=== PATIENT | female | born 1985 | race Caucasian/White ===

== ENCOUNTER 2016-11-01 10:01 | Emergency (ER) | payer MEDICAID, OTHER ==
[~2016-11-01] VITALS: Ht 162.6 cm; Wt 54.4 kg
[~2016-11-01 10:01] MED LIST: PREN1TAB14 PO
[2016-11-01 10:46] LABS: BILIRUBIN,URINE NEGATIVE (NEGATIVE); KETONES,URINE NEGATIVE (NEGATIVE); LEUKOCYTE ESTERASE ,URINE 1+ (NEGATIVE); NITRITE,URINE NEGATIVE (NEGATIVE); PH,URINE 6.5 (5-9); PROTEIN,URINE NEGATIVE (NEGATIVE); UROBILINOGEN,URINE NORMAL (NORMAL)
[2016-11-01] MEDS ORDERED: cefTRIAXone 1 GM (ROCEPHIN) VIAL ONE (11:25)
--- NOTE | 2016-11-01 11:44 | ED GU-Female ---
General Chief Complaint: -Female Stated Complaint: VAG BLEEDING/19 WKS PREG Nursing Triage Note: PT STATES HAS BEEN HAVING VAGINAL DISCHARGE FOR APPROX 6 DAYS, STATES HAS NO MVT NOTED, LMP 06/16/16, PT IS 19-20 WEEKS ACCORDING TO LMP.PT HAS NO CARE. Nursing Sepsis Screen: No Definite Risk Source: patient Exam Limitations: no limitations History of Present Illness Time seen by provider: 11:41 Initial Comments The patient is a 31-year-old white female who presents with obstetrical complaints. She states by last menstrual period she is 19-20 weeks . She has not seen a provider at this point. She reports that for the last week she has not felt movement. She has had discharge and old blood appearance vaginally. She seems to be very secretive about the whole circumstance. She is aborta 2 Timing/Duration: other Allergies and Home Medications Allergies Coded Allergies: No Known Drug Allergies (Verified Allergy, Unknown, 11/05/08) Home Medications Vits W-Ca,Fe,Fa(<1MG) 1 Each Tablet 1 EACH PO DAILY (Reported) Constitutional: see HPI EENTM: no symptoms reported Respiratory: no symptoms reported Cardiovascular: no symptoms reported Gastrointestinal: no symptoms reported Genitourinary: see HPI Musculoskeletal: no symptoms reported Skin: no symptoms reported Psychiatric/Neurological: No Symptoms Reported Endocrine: No Symptoms Reported Hematologic/Lymphatic: No Symptoms Reported Past Hcmaogj-Azjmxi-Kbqljz Hx Patient Social History Alcohol Use: Denies Use Recreational Drug Use: No Smoking Status: Never a Smoker Recent Foreign Travel: No Contact w/Someone Who Travel: No Recent Infectious Disease Expo: No Recent Hopitalizations: Yes (CHILDBIRTH 12/2008, 06/2010) Physical Abuse Screen: No Sexual Abuse: No Immunizations Up To Date Date of Influenza Vaccine: Aug 15, 2012 Surgeries HX Surgeries: Yes (LEEP) Respiratory Hx Respiratory Disorders: No Cardiovascular Hx Cardiac Disorders: No Neurological Hx Neurological Disorders: No Reproductive System : Yes (APPROX 19WEEKS) Hx Reproductive Disorders: Yes Sexually Transmitted Disease: Yes (HPV) Genitourinary Hx Genitourinary Disorders: No Gastrointestinal Hx Gastrointestinal Disorders: No Musculoskeletal Hx Musculoskeletal Disorders: No Endocrine Hx Endocrine Disorders: No HEENT HX ENT Disorders: No Psychosocial Hx Psychiatric Problems: No Blood Transfusions Hx Blood Disorders: No Physical Exam Vital Signs Vital Sign - Last 12Hours 11/01/16 10:10 Temp 98.3 Pulse 98 Resp 18 B/P 108/69 Pulse Ox 99 Capillary Refill : Less Than 3 Seconds General Appearance: mild distress HEENT: normal ENT inspection Neck: full range of motion Cardiovascular: normal peripheral pulses regular rate, rhythm no edema no gallop no JVD no murmur Respiratory: chest non-tender lungs clear normal breath sounds no respiratory distress no accessory muscle use respiratory distress Gastrointestinal: normal bowel sounds non tender soft no organomegaly no pulsatile mass abnormal bowel sounds Progress/Results/Core Measures Results/Orders Lab Results Laboratory Tests Test 11/01/16 10:35 11/01/16 10:45 Range/Units Urine Bacteria TRACE /HPF Urine Bilirubin NEGATIVE NEGATIVE Urine Casts NONE /LPF Urine Clarity CLEAR Urine Color YELLOW Urine Crystals NONE /LPF Urine Culture Indicated NO Urine Glucose (UA) NEGATIVE NEGATIVE Urine Ketones NEGATIVE NEGATIVE Urine Leukocyte Esterase 1+ H NEGATIVE Urine Mucus SMALL H /LPF Urine Nitrite NEGATIVE NEGATIVE Urine Protein NEGATIVE NEGATIVE Urine RBC 0-2 /HPF Urine RBC (Auto) 2+ H NEGATIVE Urine Specific [place] 1.015 L 1.016-1.022 Urine Squamous Epithelial Cells 2-5 /HPF Urine Urobilinogen NORMAL NORMAL MG/DL Urine WBC NONE /HPF Urine pH 6.5 5-9 Human Chorionic Gonadotropin, Quant 322 H <5 MIU/ML My Orders Orders-RODERICK SOTOMAYOR MD Hcg,Quantitative (11/01/16 10:26) Ua Culture If Indicated (11/01/16 10:26) Ceftriaxone Injection (Rocephin Injectio (11/01/16 11:25) Us Limited [id number] (11/01/16 10:26) Vital Signs/I&O Vital Sign - Last 12Hours 11/01/16 10:10 Temp 98.3 Pulse 98 Resp 18 B/P 108/69 Pulse Ox 99 Blood Pressure Mean: 82 Departure Communication Progress Notes 1150 again discussed the findings and my concerns to the patient. She allowed that she is Rh-. And therefore she will need program. She also agrees that she would see Dr. Wynne. I will try to arrange that for her. It is noted that her dates weren't 19-20 weeks, the sonographic age was 12-13 weeks, and the hCG quantitatively was consistent with 1-3 weeks. Impression Impression: Primary Impression: demise Disposition: 01 HOME, SELF-CARE Condition: Stable/Unchanged Departure-Patient Inst. Decision time for Depature: 12:16 Referrals: NO,LOCAL PHYSICIAN (PCP) Primary Care Physician Add. Discharge Instructions: All discharge instructions reviewed with patient and/or family. Voiced understanding. Appointment tomorrow at [address] Wynne's office. Return to emergency room if significant pain or severe vaginal bleeding RODERICK SOTOMAYOR MD Nov 01, 2016 11:44
--- NOTE | 2016-11-01 11:54 | Diagnostic Imaging Report ---
EXAMINATION: ultrasound. INDICATION: Bleeding There are no prior exams available for comparison. There is a single fetus present. The fetus is in breech presentation. However heart motion could not be identified. The skull is somewhat oblong. No other obvious abnormality is noted. The BPD measurements suggest a gestational age is approximately 12-13 weeks. The amniotic fluid volume is within normal limits. The placenta is posterior. IMPRESSION: demise. These results were called to Dr. Rinaldi at time of dictation. CRITICAL FINDING: Dictated by: Dictated on workstation # [id number]
[2016-11-01 12:37] VITALS: BP 108/69
[2016-11-17] MEDS ORDERED: IBUP-1773 PO (09:32)
[2016-11-17] MEDS ORDERED: HYDR-3729 PO (09:32)
== END 2016-11-01 13:06 | disposition home or self-care (01) ==
LOC: EDUNIT# 10:01 → ER 10:03
DX: O36.4XX0 Maternal care for intrauterine death, not applicable or unspecified (principal); Z3A.12 12 weeks gestation of pregnancy
CPT/HCPCS: 36415; 76815; 81000; 84702

== ENCOUNTER 2016-11-13 10:22 | Emergency (ER) | payer MEDICAID ==
[~2016-11-13] VITALS: Ht 162.6 cm; Wt 54.4 kg
--- NOTE | 2016-11-13 11:37 | ED GU-Female ---
General Chief Complaint: Fever-Adult/Adol Stated Complaint: FEVER MISCARRIAGE Nursing Triage Note: PT. HAD MISCARRIAGE WITH DNC SCHEDULED FOR WEDNESDAY. OBGYN TOLD PT. TO CHECK IN IF FEVER DEVELOPES. TEMP AT [facility] WAS 100.0.TEMP IN TRIAGE 99.7, TEMPORAL. Nursing Sepsis Screen: No Definite Risk Source: patient, spouse Exam Limitations: no limitations History of Present Illness Time seen by provider: 11:37 Initial Comments 31-year-old female patient presents to the emergency department with complaints of increased vaginal bleeding and intermittent contractions. Also reports low- grade fever beginning this a.m. Patient was seen in the emergency department at [facility] in 11/01/[address] Rinaldi and diagnosed with demise at 19 weeks (Fetus measured 12-13 weeks by ultrasound without detectable heart activity). Patient was then seen by Dr. Matthews in the office and given a Rhogam shot last Wednesday. Patient is scheduled for outpatient D&C on 11/17/[address] Matthews. Denies current cramping, pain, nausea, and vomiting. NPO since 1000 (had a couple of bites of a banana) Timing/Duration: changing over time, other (onset 10-14 days.) Severity/Quality: other (intermittent contractions beginning Wednesday.) Location: vaginal, other (lower abdomen ) Radiation: none Activities at Onset: none Prior Genitourinary Problems: similar symptoms Sexual [place] History: less than 2 months ago, single partner Modifying Factors: Worsens With Other (denies modifying factors.) Allergies and Home Medications Allergies Coded Allergies: No Known Drug Allergies (Verified Allergy, Unknown, 11/05/08) Home Medications Ondansetron 8 Mg Tab.rapdis #10 4-8 MG PO Q6H PRN PRN NAUSEA Prescribed by: KAMILLA GASCA on 11/13/16 1411 Constitutional: chillsNo dizziness, feverNo malaise Respiratory: no symptoms reported Cardiovascular: no symptoms reported Gastrointestinal: see HPI abdominal painNo constipation, No diarrhea, No nausea, No vomiting Genitourinary: see HPIdenies burning, dischargedenies dysuria, denies frequency, denies flank pain, pain (intermittent contractions.) Musculoskeletal: No back pain Skin: no symptoms reported Psychiatric/Neurological: No Symptoms Reported All Other Systemes Reviewed Negative Unless Noted: Yes (Negative excepted noted.) Past Wmxelkn-Ychacz-Pjpvsy Hx Patient Social History Alcohol Use: Denies Use Recreational Drug Use: No Smoking Status: Never a Smoker Recent Foreign Travel: No Contact w/Someone Who Travel: No Recent Infectious Disease Expo: No Recent Hopitalizations: Yes (CHILDBIRTH 12/2008, 06/2010) Physical Abuse Screen: No Sexual Abuse: No Immunizations Up To Date Date of Influenza Vaccine: Aug 15, 2012 Surgeries HX Surgeries: Yes (LEEP) Respiratory Hx Respiratory Disorders: No Cardiovascular Hx Cardiac Disorders: No Neurological Hx Neurological Disorders: No Reproductive System : Yes Hx : 7 Hx Para: 4 Hx Total # of Abortions (Spona: 2 Hx Reproductive Disorders: Yes Sexually Transmitted Disease: Yes (HPV) Genitourinary Hx Genitourinary Disorders: No Gastrointestinal Hx Gastrointestinal Disorders: No Musculoskeletal Hx Musculoskeletal Disorders: No Endocrine Hx Endocrine Disorders: No HEENT HX ENT Disorders: No Psychosocial Hx Psychiatric Problems: No Blood Transfusions Hx Blood Disorders: No Reviewed Nursing Assessment Reviewed/Agree w Nursing PMH: Yes Family Medical History Significant Family History: No Pertinent Family Hx Physical Exam Vital Signs Vital Sign - Last 12Hours 11/13/16 11/13/16 11:17 14:38 Temp 99.7 Pulse 75 Resp 18 B/P 100/61 Pulse Ox 97 O2 Delivery Room Air Capillary Refill : Less Than 3 Seconds General Appearance: WD/WN no apparent distress HEENT: PERRL/EOMI pharynx normal Neck: supple normal inspection Cardiovascular: normal peripheral pulses regular rate, rhythm no edema no murmur Respiratory: lungs clear normal breath sounds no respiratory distress Gastrointestinal: normal bowel sounds non tender softNo distended, other ( uterine fundus consistent with a 13 wk uterus.) Back: normal inspection no CVA tenderness Extremities: no pedal edema normal capillary refill Neurologic/Psychiatric: alert oriented x 3 other (flat affect) Skin: normal color warm/dry Progress/Results/Core Measures Results/Orders Lab Results My Orders Medications Given in ED Vital Signs/I&O Blood Pressure Mean: 74 Departure Communication Progress Notes Patient seen and evaluated. Patient reports receiving rhogam in the OB's office last Wednesday. Patient instructed to not eat or drink anything. states "I don't know that I trust myself not to let her drink if she wants something." I advised the patient and that if she requires surgery, eating or drinking increased her risk of aspiration, infection, and/or . Both voice understanding. 1335 patient case discussed with Dr. Morris including history, exam findings, vital signs, laboratory findings. Dr. Morris recommends discharge to home with return precautions as patient has a normal white count. Advises patient to f/u with Dr. Matthews as previously scheduled Wednesday for D&C. 1345 all laboratory findings and recommendations by Dr. Morris discussed with the patient. All return precautions were discussed with the patient as described in the discharge instructions of this report. Patient voices understanding and agrees with the treatment plan. Patient case discussed with Dr. Michele, he agrees with the plan of care. Impression Impression: Primary Impression: demise, less than 22 weeks Disposition: 01 HOME, SELF-CARE Condition: Improved Departure-Patient Inst. Decision time for Depature: 13:44 Referrals: SHAMA MORRIS MD NO,LOCAL PHYSICIAN (PCP) Primary Care Physician SANJEEV MATTHEWS DO Patient Instructions: Dealing With Miscarriage, Miscarriage (DC) Add. Discharge Instructions: All discharge instructions reviewed with patient and/or family. Voiced understanding. Tylenol Extra Strength [id number] as directed for pain. Ibuprofen 800 mg by mouth every 8 hours as needed for pain. Drink plenty of fluids. Rest. No tampons, intercourse, or douching. Follow-up with Dr. Matthews on Wednesday for D&C as previously scheduled. Be at the hospital on Wednesday by 06 :15 AM for your procedure. Contact Dr. Matthews's office Wednesday to notify them of ED visit. Return to the emergency department immediately for fever greater than 100.5F, vaginal bleeding with greater than 2 pads per hour for greater than 2 hours, vaginal discharge, inability to urinate, dizziness, shortness of air, chest pain, or any other concerns. Scripts Ondansetron (Ondansetron Odt)8 Mg Tab.rapdis4-8 Mg PO Q6H PRN NAUSEA #10 TAB Ref 0 Prov:KAMILLA GASCA 11/13/16 KAMILLA GASCA Nov 13, 2016 11:37 Lactic Acid Level 1.0 0.5-2.0 MMOL/L Lymphocytes # (Auto) 1.5 1.0-4.0 X 10^3 Lymphocytes (%) (Auto) 16 12-44 % Mean Corpuscular Hemoglobin 30 25-34 PG Mean Corpuscular Hemoglobin Concent 33 32-36 G/DL Mean Corpuscular Volume 92 80-99 FL Mean Platelet Volume 9.5 7.4-10.4 FL Monocytes # (Auto) 0.3 0.0-1.0 X 10^3 Monocytes (%) (Auto) 3 0-12 % Neutrophils # (Auto) 7.5 1.8-7.8 X 10^3 Neutrophils (%) (Auto) 81 H 42-75 % Platelet Count 233 130-400 10^3/uL Potassium Level 3.7 3.6-5.0 MMOL/L Red Blood Count 4.80 4.35-5.85 10^6/uL Red Cell Distribution Width 13.0 10.0-14.5 % Sodium Level 139 135-145 MMOL/L Total Bilirubin 0.6 0.1-1.0 MG/DL Total Protein 7.8 6.4-8.2 G/DL White Blood Count 9.3 4.3-11.0 10^3/uL Ur Tricyclic Antidepressants Screen NEGATIVE NEGATIVE Urine Amphetamines Screen NEGATIVE NEGATIVE Urine Bacteria TRACE /HPF Urine Barbiturates Screen NEGATIVE NEGATIVE Urine Benzodiazepines Screen NEGATIVE NEGATIVE Urine Bilirubin NEGATIVE NEGATIVE Urine Cannabinoids Screen NEGATIVE NEGATIVE Urine Casts NONE /LPF Urine Clarity CLEAR Urine Cocaine Screen NEGATIVE NEGATIVE Urine Color YELLOW Urine Crystals NONE /LPF Urine Culture Indicated NO Urine Glucose (UA) NEGATIVE NEGATIVE Urine Ketones 3+ H NEGATIVE Urine Leukocyte Esterase NEGATIVE NEGATIVE Urine Methadone Screen NEGATIVE NEGATIVE Urine Methamphetamines Screen NEGATIVE NEGATIVE Urine Mucus NEGATIVE /LPF Urine Nitrite NEGATIVE NEGATIVE Urine Opiates Screen NEGATIVE NEGATIVE Urine Oxycodone Screen NEGATIVE NEGATIVE Urine Phencyclidine Screen NEGATIVE NEGATIVE Urine Propoxyphene Screen NEGATIVE NEGATIVE Urine Protein NEGATIVE NEGATIVE Urine RBC 10-25 H /HPF Urine RBC (Auto) 5+ H NEGATIVE Urine Specific [place] 1.010 L 1.016-1.022 Urine Squamous Epithelial Cells 2-5 /HPF Urine Urobilinogen NORMAL NORMAL MG/DL Urine WBC NONE /HPF Urine pH 7 5-9 My Orders Orders-KAMILLA GASCA Cbc With Automated Diff (11/13/16 11:40) Comprehensive Metabolic Panel (11/13/16 11:40) Ua Culture If Indicated (11/13/16 11:40) Saline Lock/Iv-Start (11/13/16 11:40) Rhogam Administration (11/13/16 11:40) Lactic Acid Analyzer (11/13/16 11:40) Blood Culture (11/13/16 11:40) Ns Iv 1000 Ml (Sodium Chloride 0.9%) (11/13/16 11:40) Drug Screen Stat (Urine) (11/13/16 11:52) Medications Given in ED Current Medications Medications Dose Ordered Sig/Natalee Route Start Time Stop Time Status Last Admin Dose Admin Sodium Chloride 1,000 ml @ 0 mls/hr Q0M ONCE IV 11/13/16 11:40 11/13/16 11:43 DC 11/13/16 12:08 1,000 MLS/HR Vital Signs/I&O Vital Sign - Last 12Hours 11/13/16 11:17 Temp 99.7 Pulse 75 B/P 100/61 Pulse Ox 97 O2 Delivery Room Air Blood Pressure Mean: 74 Departure Communication Progress Notes Patient seen and evaluated. Patient reports receiving rhogam in the OB's office last Wednesday. Patient instructed to not eat or drink anything. states "I don't know that I trust myself not to let her drink if she wants something." I advised the patient and that if she requires surgery, eating or drinking increased her risk of aspiration, infection, and/or . Both voice understanding. 4887 patient case discussed with Dr. Morris off him. Recommends discharge to home with return precautions as patient has a normal white count. Impression Impression: Primary Impression: demise, less than 22 weeks Disposition: 01 HOME, SELF-CARE Condition: Improved Departure-Patient Inst. Decision time for Depature: 13:44 Referrals: SHAMA MORRIS MD,LOCAL PHYSICIAN (PCP) Primary Care Physician SANJEEV MATTHEWS DO Patient Instructions: Dealing With Miscarriage, Miscarriage (DC) Add. Discharge Instructions: All discharge instructions reviewed with patient and/or family. Voiced understanding. Tylenol Extra Strength [id number] as directed for pain. Ibuprofen 800 mg by mouth every 8 hours as needed for pain. Drink plenty of fluids. Rest. No tampons, intercourse, or douching. Follow-up with Dr. Matthews on Wednesday for D&C as previously scheduled. Be at the hospital on Wednesday by 06 :15 AM for your procedure. Contact Dr. Matthews's office Wednesday to notify them of ED visit. Return to the emergency department immediately for fever greater than 100.5F, vaginal bleeding with greater than 2 pads per hour for greater than 2 hours, vaginal discharge, inability to urinate, dizziness, shortness of air, chest pain, or any other concerns. KAMILLA GASCA Nov 13, 2016 11:37
[2016-11-13] MEDS ORDERED: NS IV 1000 ML 1,000 ML IV ONE (11:40)
[2016-11-13 12:11] LABS: BASOPHILS % (AUTO) 0 % (0-10); EOSINOPHILS % (AUTO) 0 % (0-10); LYMPHOCYTES # (AUTO) 1.5 X 10^3 (1.0-4.0); LYMPHOCYTES % (AUTO) 16 % (12-44); MEAN CORPUSCULAR HEMOGLOBIN 30 PG (25-34); MEAN CORPUSCULAR HGB CONC 33 G/DL (32-36); MEAN CORPUSCULAR VOLUME 92 FL (80-99); MEAN PLATELET VOLUME 9.5 FL (7.4-10.4); MONOCYTES # (AUTO) 0.3 X 10^3 (0.0-1.0); MONOCYTES % (AUTO) 3 % (0-12); NEUTROPHILS # (AUTO) 7.5 X 10^3 (1.8-7.8); NEUTROPHILS % (AUTO) 81 % (42-75); PLATELET COUNT 233 10^3/uL (130-400); WHITE BLOOD COUNT 9.3 10^3/uL (4.3-11.0)
[2016-11-13 12:32] LABS: ALANINE AMINOTRANSFERASE 12 U/L (0-55); ALBUMIN 4.6 G/DL (3.2-4.5); ANION GAP 12 MMOL/L (5-14); ASPARTATE AMINO TRANSFERASE 17 U/L (5-34); BILIRUBIN,TOTAL 0.6 MG/DL (0.1-1.0); BLOOD UREA NITROGEN 6 MG/DL (7-18); BUN/CREATININE RATIO 9; CALCIUM 9.1 MG/DL (8.5-10.1); CARBON DIOXIDE 22 MMOL/L (21-32); CHLORIDE 105 MMOL/L (98-107); CREATININE SERUM 0.67 MG/DL (0.60-1.30); GFR ESTIMATED > 60; GLUCOSE 77 MG/DL (70-105); POTASSIUM 3.7 MMOL/L (3.6-5.0); SODIUM 139 MMOL/L (135-145); TOTAL PROTEIN 7.8 G/DL (6.4-8.2)
[2016-11-13 13:10] LABS: BILIRUBIN,URINE NEGATIVE (NEGATIVE); KETONES,URINE 3+ (NEGATIVE); LEUKOCYTE ESTERASE ,URINE NEGATIVE (NEGATIVE); NITRITE,URINE NEGATIVE (NEGATIVE); PH,URINE 7 (5-9); PROTEIN,URINE NEGATIVE (NEGATIVE); UROBILINOGEN,URINE NORMAL (NORMAL)
[2016-11-13] MEDS ORDERED: ONDA8TAB13 PO (14:11)
[2016-11-13 14:38] VITALS: BP 113/75
[2016-11-17] MEDS ORDERED: HYDR-3729 PO (09:32)
[2016-11-17] MEDS ORDERED: IBUP-1773 PO (09:32)
== END 2016-11-13 14:38 | disposition home or self-care (01) ==
LOC: EDUNIT# 10:22 → ER 10:25
DX: O36.4XX0 Maternal care for intrauterine death, not applicable or unspecified (principal); Z3A.12 12 weeks gestation of pregnancy
CPT/HCPCS: 36415; 80053; 80306; 81000; 83605; 85025; 87040; 96360

== ENCOUNTER 2016-11-17 06:03 | Day surgery (SDC) | payer MEDICAID ==
[2016-11-17] VITALS (16 sets, daily range): BP systolic 100–128; BP diastolic 63–83
[~2016-11-17] VITALS: Ht 162.6 cm; Wt 54.4 kg
[~2016-11-17 06:03] MED LIST changes: +ONDA8TAB13 PO
[2016-11-17] MEDS: LACTATED RINGERS 1,000 ML IV PRN ×4 (06:40→17:57)
[2016-11-17 06:58] LABS: BASOPHILS % (AUTO) 0 % (0-10); EOSINOPHILS % (AUTO) 1 % (0-10); LYMPHOCYTES # (AUTO) 1.8 X 10^3 (1.0-4.0); LYMPHOCYTES % (AUTO) 31 % (12-44); MEAN CORPUSCULAR HEMOGLOBIN 31 PG (25-34); MEAN CORPUSCULAR HGB CONC 33 G/DL (32-36); MEAN CORPUSCULAR VOLUME 92 FL (80-99); MEAN PLATELET VOLUME 9.2 FL (7.4-10.4); MONOCYTES # (AUTO) 0.3 X 10^3 (0.0-1.0); MONOCYTES % (AUTO) 6 % (0-12); NEUTROPHILS # (AUTO) 3.5 X 10^3 (1.8-7.8); NEUTROPHILS % (AUTO) 62 % (42-75); PLATELET COUNT 175 10^3/uL (130-400); RED BLOOD COUNT 4.27 10^6/uL (4.35-5.85); RED CELL DISTRIBUTION WIDTH 12.8 % (10.0-14.5); WHITE BLOOD COUNT 5.7 10^3/uL (4.3-11.0)
[2016-11-17] MEDS ORDERED: LIDOCAINE PF 2% 10 ML (XYLOCAINE) AMP ONE ×2 (06:58→16:15)
[2016-11-17] MEDS ORDERED: fentaNYL INJECTION 100 MCG/2 ML AMP ONE ×2 (06:58→15:40)
[2016-11-17] MEDS ORDERED: ONDANSETRON 4 MG/2 ML (SDV) Z0FRAN ONE ×2 (06:58→16:15)
[2016-11-17] MEDS ORDERED: DEXAMETHASONE PF 10 MG/ML (DECADRON) VIAL ONE (06:58)
[2016-11-17] MEDS ORDERED: LACTATED RINGERS 0 ML IV ONE (06:58)
[2016-11-17] MEDS ORDERED: proPOfol 200 MG/20 ML (DIPRIVAN) VIAL IV ONE ×2 (06:58→16:15)
[2016-11-17] MEDS ORDERED: MIDAZOLAM 2 MG/2 ML (VERSED) VIAL ONE ×2 (06:58→15:39)
[2016-11-17] MEDS ORDERED: metroNIDAZOLE 500 MG/100 ML IVPB (PRE-MIX) IV ONE (07:00)
[2016-11-17] MEDS ORDERED: ceFAZolin 1 GM/NS 50 ML IVPB IV ONE ×2 (07:00)
[2016-11-17] MEDS ORDERED: CATHETER FLUSH 10 ML SYR IV PRN (07:00)
--- NOTE | 2016-11-17 07:43 | Progress Note-Pre Operative ---
Pre-Operative Progress Note H&P Reviewed The H&P was reviewed, patient examined and no changes noted. Date H&P Reviewed: Nov 17, 2016 Time H&P Reviewed: 07:30 Pre-Operative Diagnosis: missed ab at 12 weeks SANJEEV MATTHEWS DO Nov 17, 2016 07:43
[2016-11-17] MEDS ORDERED: OXYTOCIN (PITOCIN) 10 UNIT/ML VIAL ONE (08:45)
[2016-11-17] MEDS ORDERED: LACTATED RINGERS 1,000 ML IV ONE ×2 (09:11→17:55)
[2016-11-17] MEDS ORDERED: SEVOFLURANE (ULTANE) 15 ML INHAL SOLN ONE ×5 (09:12→16:59)
[2016-11-17] MEDS ORDERED: PHENYLEPHRINE 100 MCG/ML 10 ML (ANESTHESIA) SYR ONE (09:14)
[2016-11-17] MEDS ORDERED: HYDROcodone/APAP 5 MG/325 MG (LORTAB) TAB PO PRN ×2 (09:15→12:45)
[2016-11-17] MEDS ORDERED: KETOROLAC 30 MG/ML VIAL IVP ONE (09:15)
[2016-11-17] MEDS ORDERED: ONDANSETRON 4 MG/2 ML (SDV) Z0FRAN IVP PRN (09:15)
[2016-11-17] MEDS ORDERED: MISOPROSTOL 200 MCG (CYTOTEC) TABLET PO NR (09:15)
--- NOTE | 2016-11-17 09:28 | Operative Report ---
Operative Report Date of Procedure/Surgery Nov 17, 2016 Post-Operative Diagnosis missed ab at 12 weeks. Procedure Performed Name of Procedure: dilation and evacuation of 12 week demise Description of Procedure Histologic Aide ISATU Mark Histologic Aide necessary due to risk of bleeding and retained products Anesthesia Type: General Estimated blood loss (mL): 1000 ml Specimen(s) collected products of conception Indications missed AB at 12 weeks Procedure this is a 31-year-old 6 para 4 female with last menstrual period approximately 22 weeks ago. About 2 weeks ago, she went to the emergency room with complaint of abnormal vaginal discharge. She had not yet been established for care. She states she just had some discharge but no bleeding and no spotting. Ultrasound was done revealing a 12 week demise. She had had no symptoms of miscarriage and thought she was 20 weeks . She has had no fever. She came to see me the next day and we have scheduled her for D&C 14 days ago. However she wanted to see if she could do this on her own and passed the tissue. Since that time she has had episodes of bleeding. But no passage of tissue. Last week she came to the office for confirmation and still had a 12 week demise. Weekend she has had a low-grade temperature and some vomiting but no heavy bleeding and no cramping. With informed consent the patient was taken to the operating room where she was prepped and draped in the usual sterile fashion in the dorsal . A straight catheter was used to drain the bladder of clear yellow urine. a weighted speculum was now placed in the vagina and a Gilberto was used to retract the bladder. The cervix was grasped with a sharp toothed tenaculum. There was a very tiny amount of blood-tinged discharge. The cervix was closed. I utilized Hegar dilators to dilate up to 18 millimeters. Then inserted a grasper and eventually was able to tease out the tissue. It did not come out intact. But I was able to remove all the tissue and did a postoperative exam to realize that the entire fetus was removed. It was very discolored and macerated. We did this under ultrasound guidance. I then followed up with a ivette curet to remove the placenta. The placenta was very macerated with large blood clots Bactine that she was trying to miscarry. There was no abnormal discharge or smell. She did have some bleeding after removal and this resolved with IV Pitocin (20 mg) and 0.2 mg of IM Methergine. She did have a laceration on the cervix from the tenaculum and this was repaired with 3-0 Vicryl. She had minimal bleeding at the end of the procedure. I examined the tissue and it was not intact, but all removed. We did get footprints. It was a male fetus. Will be sent for gross inspection. Patient and the preferred to take the fetus for burial or cremation. The instruments were removed. Sponge, instrument, and needle counts were correct 2. Allergies and Home Medications Allergies Coded Allergies: No Known Drug Allergies (Verified , 11/05/08) Home Medications Ondansetron 8 Mg Tab.rapdis #10 4-8 MG PO Q6H PRN PRN NAUSEA Prescribed by: KAMILLA GASCA on 11/13/16 1411 SANJEEV MATTHEWS DO Nov 17, 2016 09:28
[2016-11-17] MEDS ORDERED: PROMETHAZINE INJ 25 MG/ML (PHENERGAN) AMP IV PRN (09:30)
[2016-11-17] MEDS ORDERED: ONDANSETRON 4 MG/2 ML (SDV) Z0FRAN IV PRN (09:30)
[2016-11-17] MEDS ORDERED: morphine INJ 10 MG/ML 1ML (SYR OR VIAL) IV PRN (09:30)
[2016-11-17] MEDS ORDERED: IBUP-1773 PO (09:32)
[2016-11-17] MEDS ORDERED: HYDR-3729 PO (09:32)
--- NOTE | 2016-11-17 09:34 | Discharge Inst-Women's Service ---
Discharge Inst-Women's Serv Depart Medication/Instructions New, Converted or Re-Newed RX: RX on Chart Instructions expect light bleeding for up to 2 weeks. Call for signs of infection, bleeding greater than 1 pad per hour Final Diagnosis missed at 12 weeks Consults/Follow Up Additional Follow Up: Yes (1 week with Ricci) Activity Activity: Activity as Tolerated Driving Instructions: No Driving for 24 Hours ( a) NO SMOKING: NO SMOKING Nothing Inside Vagina: No Douching, No Deltana, No Tampons Diet Discharge Diet: No Restrictions Symptoms to Report to : Bleeding Excessive, Fever Over 101 Degrees F, Vaginal Bleeding Increase, Vaginal Discharge Foul For Any Problems or Questions: Contact Your Physician Skin/Wound Care Infection Signs and Symptoms: Temperature Above 101 F SANJEEV MATTHEWS DO Nov 17, 2016 09:34
[2016-11-17] MEDS ORDERED: METHYLERGONOVINE 0.2 MG/ML (METHERGINE) AMP ONE (12:02)
[2016-11-17] MEDS ORDERED: KETOROLAC 30 MG/ML VIAL IVP PRN (12:45)
[2016-11-17] MEDS: D5 LR IV SOLUTION 1,000 ML IV SCH (13:49)
[2016-11-17] MEDS: IBUPROFEN 600 MG (MOTRIN) TAB PO SCH ×2 (13:49→20:06)
[2016-11-17] MEDS: METHYLERGONOVINE 0.2 MG (MEHTERGINE) TAB PO SCH ×3 (13:50→20:06)
[2016-11-17] MEDS: OXYTOCIN/NORMAL SALINE 500 ML IV SCH ×2 (13:52→16:05)
[2016-11-17] MEDS ORDERED: MISOPROSTOL 200 MCG (CYTOTEC) TABLET PV NR (14:00)
[2016-11-17 14:35] LABS: BASOPHILS % (AUTO) 0 % (0-10); EOSINOPHILS % (AUTO) 0 % (0-10); LYMPHOCYTES # (AUTO) 0.4 X 10^3 (1.0-4.0); LYMPHOCYTES % (AUTO) 3 % (12-44); MEAN CORPUSCULAR HEMOGLOBIN 31 PG (25-34); MEAN CORPUSCULAR HGB CONC 34 G/DL (32-36); MEAN CORPUSCULAR VOLUME 92 FL (80-99); MEAN PLATELET VOLUME 9.2 FL (7.4-10.4); MONOCYTES # (AUTO) 0.1 X 10^3 (0.0-1.0); MONOCYTES % (AUTO) 1 % (0-12); NEUTROPHILS # (AUTO) 13.8 X 10^3 (1.8-7.8); NEUTROPHILS % (AUTO) 96 % (42-75); PLATELET COUNT 195 10^3/uL (130-400); RED CELL DISTRIBUTION WIDTH 12.5 % (10.0-14.5); WHITE BLOOD COUNT 14.3 10^3/uL (4.3-11.0)
[2016-11-17 14:56] LABS: BAND NEUTROPHILS 0 %; NEUTROPHILS % (MANUAL) 98 %
[2016-11-17 14:57] LABS: BASOPHILS % (MANUAL) 0 %; EOSINOPHILS % (MANUAL) 0 %; LYMPHOCYTES % (MANUAL) 2 %
[2016-11-17] MEDS ORDERED: CARBOPROST (HEMABATE) 250 MCG/ML AMP IM ONE ×2 (15:00→17:00)
[2016-11-17] MEDS: ceFAZolin INJECTION 1,000 MG in NORMAL SALINE (BAXTER MINI) 50 ML IV SCH ×2 (15:03→23:11)
[2016-11-17] MEDS ORDERED: LACTATED RINGERS 3,000 ML IV ONE (16:15)
[2016-11-17] MEDS ORDERED: SUCCINYLCHOLINE INJ 100 MG/5 ML SYR ONE (16:15)
[2016-11-17 16:34] LABS: INR 1.3 (0.8-1.4); PROTHROMBIN TIME PATIENT 16.2 SEC (12.2-14.7)
[2016-11-17] MEDS: NS IV 1000 ML 1,000 ML IV SCH ×2 (16:44→18:35)
[2016-11-17] MEDS ORDERED: NS IV 1000 ML 1,000 ML ONE (16:58)
[2016-11-17] MEDS ORDERED: morphine INJ 10 MG/ML 1ML (SYR OR VIAL) ONE (17:15)
--- NOTE | 2016-11-17 17:15 | Operative Report ---
Operative Report Date of Procedure/Surgery Nov 17, 2016 Post-Operative Diagnosis retained placental tissue, vaginal hemorrhage Procedure Performed Name of Procedure: return for exam under anesthesia, curettage and insertion of uterine gallegos Description of Procedure Anesthesia Type: General Estimated blood loss (mL): 700 ml Specimen(s) collected products of conception Procedure this is a 31-year-old 7 para 4 female with history of a 12 week demise with last menstrual period 22 weeks ago. She had dilation and curettage today. The fetus was very macerated and for a long time. The placenta was removed possibly intact. but was unable to completely be determined due to the maceration and blood clots. Following the procedure there was a laceration of the cervix that was repaired bleeding in the OR cyst she was taken to the recovery room. Through the recovery time, She also had minimal bleeding. she was voiding normally, but when she got up to void she passed a large clot into the toilet. She had not yet been given misoprostol so this was given to her and then she was feeling better but had to get up to the toilet again and at that time passed another clot. We opted to admit her to the hospital for observation due to bleeding. She was initially doing well. However her bleeding began to increase. She was given ordered Methergine and the suprasternal and this slowed bleeding slightly. I also asked that a Gallegos catheter be placed and she was given 250 g of Hemabate. She continued to pass clots and had soaked through a Chux pad and therefore it was determined to return return to the operating room for exam under anesthesia. The nurse had tried to place the Gallegos catheter. She states she placed it in the proper position, but that she had clots return and therefore she did not place this. I was concerned that maybe there was some type of bladder injury which was the other reason we returned to the OR. On evaluation in the OR and there were large clots in the vagina. I did place a Gallegos catheter after she was prepped and draped in the usual sterile fashion, and general anesthetic had been found to be adequate. I was able to place the Gallegos catheter in the bladder easily. And had very light yellow urine and no blood. I am not certain where the nurse and placed a Gallegos However there was a laceration underneath the urethra in the cervix, and I was concerned that maybe it got accidentally placed here. This laceration was bleeding. I placed a speculum in the vagina, a weighted speculum. And then retracted with a Gilberto retractor. The bleeding was coming from the cervix and slightly from the laceration. There was a gaping area of the left-sided laceration which makes me suspicious that this is where the Gallegos catheter was accident placed. I reclosed this with a [id number] stitch of 3-0 Vicryl, and the laceration was hemostatic. at this point I placed 2 ring forceps on the 3 and 9 o'clock. I then did a repeat D&C and removed several small pieces of what appeared to be placental tissue. They were dark and bloody. I then placed a Gallegos catheter in the uterus with 60 mL of fluid in the bulb 4. Follow up with an Ultrasound. The Gallegos catheter was in place. I could visualize the anterior uterus and there was no evidence of perforation. There was a small calcified or whitened area at the fundus so that was suspicious that maybe there was still a small amount of blood or a little bit of tissue left. During this time we did do a DIC panel as well as a. Her blood pressure was low and her heart rate was elevated. Her hemoglobin was 7.7 so she is being given 2 units of packed red blood cells with that third unit available. I watched the bleeding from the uterus and there continued to be a small amount of oozing. It did appear to come from the cervix and we did cauterize this but there continued to be some bleeding from the uterus. Therefore I removed the Gallegos catheter from the uterus. And when I did this the bleeding picked up. I therefore did another curet from the fundus and found a small amount of tissue. At this point there was a gritty texture heard and apparent returns. I stopped the curet at this time. And then I reinserted the Gallegos catheter and insufflated with 90 Mls of saline. I also placed [id number] stitches at the 9 and 3 o'clock region of the branch of the uterine artery. And that all of these maneuvers helped to slow the bleeding to very minimal. The ring forceps were removed from the cervix and the bleeding did not increase. The patient was awakened and taken to the recovery room in a stable condition. Sponge, needle, instrument counts were correct 2. She will continue the 2 units of packed red blood cells. Her DIC labs do not show DIC, but we will repeat them. I will leave the Gallegos catheter and a minimum of 12 and a maximum of 24 hours in the uterus. Urine output throughout the procedure showed light-colored yellow urine and no blood in the Gallegos. Allergies and Home Medications Allergies Coded Allergies: No Known Drug Allergies (Verified , 11/05/08) Home Medications Hydrocodone/Acetaminophen 1 Each Tablet #15 1 EACH PO Q4H Prescribed by: SANJEEV MATTHEWS on 11/17/16 0932 Ibuprofen 600 Mg Tablet #40 600 MG PO Q6H PRN PRN PAIN Prescribed by: SANJEEV MATTHEWS on 11/17/16 0932 Ondansetron 8 Mg Tab.rapdis #10 4-8 MG PO Q6H PRN PRN NAUSEA Prescribed by: KAMILLA GASCA on 11/13/16 1411 SANJEEV MATTHEWS DO Nov 17, 2016 17:15
[2016-11-17] MEDS: morphine INJ 10 MG/ML 1ML (SYR OR VIAL) IV PRN ×2 (17:17→17:30)
[2016-11-17] MEDS ORDERED: ONDANSETRON 4 MG/2 ML (SDV) Z0FRAN IV ONE (17:30)
[2016-11-17] MEDS ORDERED: fentaNYL INJECTION 100 MCG/2 ML AMP IV PRN (17:30)
[2016-11-17] MEDS: metroNIDAZOLE 500MG/100ML IVPB 100 ML IV SCH (18:35)
[2016-11-17 20:44] LABS: BASOPHILS % (AUTO) 0 % (0-10); EOSINOPHILS % (AUTO) 0 % (0-10); LYMPHOCYTES % (AUTO) 6 % (12-44); MEAN CORPUSCULAR HEMOGLOBIN 31 PG (25-34); MEAN CORPUSCULAR HGB CONC 35 G/DL (32-36); MEAN CORPUSCULAR VOLUME 88 FL (80-99); MEAN PLATELET VOLUME 9.1 FL (7.4-10.4); MONOCYTES # (AUTO) 0.8 X 10^3 (0.0-1.0); MONOCYTES % (AUTO) 5 % (0-12); NEUTROPHILS # (AUTO) 14.3 X 10^3 (1.8-7.8); NEUTROPHILS % (AUTO) 89 % (42-75); PLATELET COUNT 182 10^3/uL (130-400); RED BLOOD COUNT 3.42 10^6/uL (4.35-5.85); RED CELL DISTRIBUTION WIDTH 13.9 % (10.0-14.5); WHITE BLOOD COUNT 16.1 10^3/uL (4.3-11.0)
[2016-11-17] MEDS ORDERED: ACETAMINOPHEN 500 MG TAB (TYLENOL) PO ONE (20:45)
[2016-11-17] MEDS ORDERED: diphenhydrAMINE 25 MG TAB (BENADRYL) PO ONE (20:45)
[2016-11-17 20:55] LABS: INR 1.3 (0.8-1.4); PROTHROMBIN TIME PATIENT 15.7 SEC (12.2-14.7)
[2016-11-18] VITALS (9 sets, daily range): BP systolic 101–123; BP diastolic 52–73
[2016-11-18] MEDS ORDERED: ACETAMINOPHEN 500 MG TAB (TYLENOL) PO PRN
[2016-11-18] MEDS: METHYLERGONOVINE 0.2 MG (MEHTERGINE) TAB PO SCH ×4 (00:40→17:59)
[2016-11-18] MEDS: MISOPROSTOL 200 MCG (CYTOTEC) TABLET PV ONE ×2 (00:41→03:42)
[2016-11-18] MEDS ORDERED: KETOROLAC 30 MG/ML VIAL IVP SCH (00:45)
[2016-11-18] MEDS: metroNIDAZOLE 500MG/100ML IVPB 100 ML IV SCH (03:35)
[2016-11-18] MEDS ORDERED: D5 LR IV SOLUTION 1,000 ML IV ONE (06:12)
[2016-11-18] MEDS: D5 LR IV SOLUTION 1,000 ML IV SCH (06:15)
[2016-11-18 06:27] LABS: BASOPHILS % (AUTO) 0 % (0-10); EOSINOPHILS % (AUTO) 0 % (0-10); LYMPHOCYTES # (AUTO) 1.8 X 10^3 (1.0-4.0); LYMPHOCYTES % (AUTO) 14 % (12-44); MEAN CORPUSCULAR HEMOGLOBIN 31 PG (25-34); MEAN CORPUSCULAR HGB CONC 35 G/DL (32-36); MEAN CORPUSCULAR VOLUME 88 FL (80-99); MEAN PLATELET VOLUME 9.4 FL (7.4-10.4); MONOCYTES # (AUTO) 0.7 X 10^3 (0.0-1.0); MONOCYTES % (AUTO) 5 % (0-12); NEUTROPHILS # (AUTO) 10.3 X 10^3 (1.8-7.8); NEUTROPHILS % (AUTO) 81 % (42-75); PLATELET COUNT 147 10^3/uL (130-400); RED BLOOD COUNT 3.22 10^6/uL (4.35-5.85); RED CELL DISTRIBUTION WIDTH 14.1 % (10.0-14.5); WHITE BLOOD COUNT 12.8 10^3/uL (4.3-11.0)
[2016-11-18 06:43] LABS: INR 1.3 (0.8-1.4); PROTHROMBIN TIME PATIENT 15.5 SEC (12.2-14.7)
[2016-11-18] MEDS: IBUPROFEN 600 MG (MOTRIN) TAB PO SCH ×4 (07:37→15:17)
[2016-11-18] MEDS: ceFAZolin INJECTION 1,000 MG in NORMAL SALINE (BAXTER MINI) 50 ML IV SCH (07:42)
--- NOTE | 2016-11-18 08:12 | Progress Note-Standard ---
Standard Progress Note Progress Notes/Assess & Plan Date Seen 11/18/16 Assess & Plan/Chief Complaint POD#1 S: Pt resting in bed, barely opens eyes to speak with me. States she is not in a lot of pain. Rodriguez removed 0630, has not voided spontaneously yet. Has not been out of bed since yesterday. Minimal abdominal cramping. No fever since before midnight this morning. Has had several crackers to eat. O: VS - Last 72 Hours, by Label 11/17/16 11/17/16 11/17/16 11/17/16 06:40 10:15 10:45 11:15 Temp 99.8 98.3 98.8 98.9 Pulse 92 80 83 95 Resp 18 16 16 16 B/P 113/68 100/63 104/65 107/68 Pulse Ox 100 100 100 100 O2 Delivery Room Air Room Air Room Air Room Air 11/17/16 11/17/16 11/17/16 11/17/16 12:35 13:15 18:05 19:36 Temp 99.3 99.0 98.4 Pulse 114 124 125 134 Resp 16 20 20 18 B/P 115/79 121/68 122/76 116/74 Pulse Ox 100 100 100 98 O2 Delivery Room Air Room Air Room Air Room Air 11/17/16 11/17/16 11/17/16 11/17/16 20:15 20:45 21:00 21:15 Temp 100.0 100.0 99.7 100.2 Pulse 129 142 137 134 Resp 18 16 16 16 B/P 123/76 120/78 128/78 128/82 Pulse Ox 100 98 100 100 O2 Delivery Room Air 11/17/16 11/17/16 11/17/16 11/17/16 21:30 21:30 22:00 22:30 Temp 100.1 99.7 100.0 Pulse 130 134 126 126 Resp 16 18 16 16 B/P 127/80 125/83 122/78 120/75 Pulse Ox 100 99 98 11/17/16 11/18/16 11/18/16 11/18/16 23:11 00:00 01:00 03:25 Temp 98.6 98.6 98.8 98.5 Pulse 119 116 112 101 Resp 18 18 16 18 B/P 120/72 116/72 110/54 101/62 Pulse Ox 100 100 100 100 O2 Delivery Room Air Room Air Room Air Room Air 11/18/16 06:00 Temp 98.7 Pulse 108 Resp 16 B/P 106/63 Pulse Ox 99 O2 Delivery Room Air Gen: NAD Abd: Soft, appropriately ttp, nondistended Laboratory Tests Test 11/17/16 14:28 11/17/16 16:10 11/17/16 20:38 11/18/16 05:29 Range/Units Band Neutrophils 0 % Basophils # (Auto) 0.0 0.0 0.0 0.0-0.1 10^3/uL Basophils % (Manual) 0 % Basophils (%) (Auto) 0 0 0 0-10 % Blood Morphology Comment NORMAL Eosinophils # (Auto) 0.0 0.0 0.0 0.0-0.3 10^3/uL Eosinophils % (Manual) 0 % Eosinophils (%) (Auto) 0 0 0 0-10 % Hematocrit 32 L 23 L 30 L 28 L 35-52 % Hemoglobin 10.8 L 7.7 #L 10.5 #L 9.9 L 11.5-16.0 G/DL Lymphocytes # (Auto) 0.4 L 1.0 1.8 1.0-4.0 X 10^3 Lymphocytes % (Manual) 2 % Lymphocytes (%) (Auto) 3 L 6 L 14 12-44 % Mean Corpuscular Hemoglobin 31 31 31 25-34 PG Mean Corpuscular Hemoglobin Concent 34 35 35 32-36 G/DL Mean Corpuscular Volume 92 88 88 80-99 FL Mean Platelet Volume 9.2 9.1 9.4 7.4-10.4 FL Monocytes # (Auto) 0.1 0.8 0.7 0.0-1.0 X 10^3 Monocytes % (Manual) 0 % Monocytes (%) (Auto) 1 5 5 0-12 % Neutrophils # (Auto) 13.8 H 14.3 H 10.3 H 1.8-7.8 X 10^3 Neutrophils % (Manual) 98 % Neutrophils (%) (Auto) 96 H 89 H 81 H 42-75 % Platelet Count 195 181 182 147 130-400 10^3/uL Red Blood Count 3.50 L 3.42 L 3.22 L 4.35-5.85 10^6/uL Red Cell Distribution Width 12.5 13.9 14.1 10.0-14.5 % Toxic Granulation 2+ White Blood Count 14.3 H 16.1 H 12.8 H 4.3-11.0 10^3/uL Activated Partial Thromboplast Time 29 24 25 24-35 SEC D-Dimer 5.88 H 4.68 H 2.36 H 0.00-0.49 UG/ML Fibrinogen 155 L 153 L 192 L 221-496 MG/DL INR Comment 1.3 1.3 1.3 0.8-1.4 Prothrombin Time 16.2 H 15.7 H 15.5 H 12.2-14.7 SEC A/P: 31 y/o with 12 wk missed AB s/p suction D&C with subsequent take back to OR for continued bleeding - see Dr. Wynne's operative note DIC labs improving Hgb stable at 9.9 Afebrile, vitals improving (tachycardic to 108 this AM but 130s yesterday) I reviewed the plan of care with the patient and her family extensively. Needs to ambulate. Needs to void. RN instructed to help pt ambulate every hour. SLIV. Stop serial labs as they have been improving/stable. Monitor vaginal bleeding while removing uterine balloon. Will continue oral methergine and oral antibiotics today. D/c home later today if stable. I will evaluate pt this afternoon first. Labs Laboratory Tests 11/17/16 06:46 11/17/16 14:28 11/17/16 16:10 11/17/16 20:38 11/18/16 05:29 BRONWYN CONTRERAS MD Nov 18, 2016 08:12
[2016-11-18] MEDS ORDERED: METH0.2T47 PO (08:16)
[2016-11-18] MEDS ORDERED: DOXY100T2 PO (08:17)
[2016-11-18] MEDS ORDERED: DOXYCYCLINE 100 MG (VIBRAMYCIN) TABLET PO SCH (09:00)
[2016-11-18] MEDS ORDERED: FLU TRIvalent (5 YOA+) 2016-17 (AFLURIA) 0.5 ML IM ONE (10:45)
--- NOTE | 2016-11-18 10:50 | Anesthesia-General Post-Op ---
General Patient Condition Mental Status/LOC: Same as Preop Cardiovascular: Satisfactory Nausea/Vomiting: Absent Respiratory: Satisfactory Pain: Controlled Complications: Absent Post Op Complications Complications None Follow Up Care/Instructions Patient Instructions None needed. Anesthesia/Patient Condition Patient Condition Patient is doing well, no complaints, stable vital signs, no apparent adverse anesthesia problems. No complications reported per nursing. [place] [facility] [place]: No JESNEIA CONKLIN CRNA Nov 18, 2016 10:50
== END 2016-11-18 19:05 | disposition home or self-care (01) ==
LOC: SDC 06:03 → LDRP 12:55 → SDC 11-18 19:05
PROVIDERS: ATTEND Obstetrics & Gynecology
DX: O02.1 Missed abortion (principal); O72.2 Delayed and secondary postpartum hemorrhage; O71.3 Obstetric laceration of cervix; Z3A.12 12 weeks gestation of pregnancy
CPT/HCPCS: 36415; 85007; 85014; 85018; 85025; 85027; 85049; 85379; 85384; 85610; 85730; 86850; 86900; 86901; 86920; 87081; 88305; 94664; 96361; 96372; 96375; 96376

== ENCOUNTER → 2021-05-09 | Outpatient (CLI) | payer BC, MEDICAID ==
[~2021-05-09] MED LIST changes: +DOXY100T2 PO; +HYDR-3729 PO; +IBUP-1773 PO; +METH0.2T47 PO
--- NOTE | 2021-05-09 15:34 | Diagnostic Imaging Report ---
INDICATION: survey. TECHNIQUE: Multiple real-time grayscale images were obtained over the gravid uterus. COMPARISON: None FINDINGS: There is single live intrauterine fetus with vertex presentation. Placenta is anterior and not low. No evidence of abruption. Amniotic fluid index is normal. anatomical survey is normal with structures visualized spine, ventricles, face, lips, stomach, four-chamber heart, ventricular outflow tract, bladder, extremities, three-vessel cord and cord insertion. Biometrical measurements are as follows: Biparietal 5.64 cm, age 23 weeks 2 days. Head circumference 20.44 cm, age 22 weeks 4 days. Abdominal circumference 17.81 cm, age 22 weeks 5 days. Femur length 3.81 cm, age 22 weeks 2 days. Sonographic estimate age: 22 weeks 5 days. Sonographic estimated date of delivery: 09/07/2021. Estimated Weight: 510 gm (+/- 75 gm). LMP percentile: 55%. heart rate: 143 beats per minute. number: 1 of 1. IMPRESSION: 1. Single live intrauterine fetus currently measuring 22 weeks 5 day gestational size. No abnormalities demonstrated. Dictated by: Dictated on workstation # [id number]
== END ==
LOC: RAD 13:00
PROVIDERS: ATTEND Obstetrics & Gynecology
DX: Z34.92 Encounter for supervision of normal pregnancy, unspecified, second trimester (principal); Z3A.22 22 weeks gestation of pregnancy
CPT/HCPCS: 76805

== ENCOUNTER → 2021-08-28 | Outpatient (CLI) | payer BC, MEDICAID ==
--- NOTE | 2021-08-28 15:54 | Diagnostic Imaging Report ---
INDICATION: measurements. TECHNIQUE: Multiple real-time grayscale images were obtained over the gravid uterus. COMPARISON: None FINDINGS: There is a single live fetus in a cephalic presentation. heart rate was recorded at 135 bpm. Placenta is anterior and to the left. Amniotic fluid index is 17.5 cm. Biometrical measurements are as follows: Biparietal 9.74 cm, age 40 weeks 0 days. Head circumference 34.23 cm, age 39 weeks 4 days. Abdominal circumference 32.13 cm, age 36 weeks 1 days. Femur length 6.72 cm, age 34 weeks 4 days. Sonographic estimate age: 37 weeks 4 days. Sonographic estimated date of delivery: 09/14/2021. Estimated Weight: 2936 gm (+/- 429 gm). LMP percentile: 21%. heart rate: 135 beats per minute. number: 1 of 1. IMPRESSION: Single live IUP 37-38 weeks gestational age with estimated date of confinement sonographically 09/14/2021. Dictated by: Dictated on workstation # [id number]
== END ==
LOC: RAD 12:00
PROVIDERS: ATTEND Nurse Practitioner Women's Health
DX: Z34.03 Encounter for supervision of normal first pregnancy, third trimester (principal); Z3A.37 37 weeks gestation of pregnancy
CPT/HCPCS: 76816

== ENCOUNTER 2021-09-09 06:00 | Inpatient (IN) | payer BC, MEDICAID ==
[2021-09-09] VITALS (19 sets, daily range): BP systolic 113–158; BP diastolic 55–94
[~2021-09-09] VITALS: Ht 162 cm; Wt 68.1 kg
[2021-09-09] MEDS ORDERED: MINERAL OIL CONCENTRATE 99.9% 15 ML UDC TOP PRN (08:30)
[2021-09-09 08:48] LABS: BILIRUBIN,URINE NEGATIVE (NEGATIVE); CLARITY,URINE CLEAR; COLOR,URINE YELLOW; GLUCOSE, URINE (UA) NEGATIVE (NEGATIVE); KETONES,URINE NEGATIVE (NEGATIVE); LEUKOCYTE ESTERASE ,URINE NEGATIVE (NEGATIVE); NITRITE,URINE NEGATIVE (NEGATIVE); PROTEIN,URINE NEGATIVE (NEGATIVE)
[2021-09-09 08:49] LABS: BASOPHILS % (AUTO) 0 % (0-10); EOSINOPHILS % (AUTO) 1 % (0-10); HEMOGLOBIN 14.4 g/dL (11.5-16.0); MEAN CORPUSCULAR VOLUME 97 fL (80-99); MONOCYTES # (AUTO) 0.3 10^3/uL (0.0-1.0); MONOCYTES % (AUTO) 4 % (0-12)
[2021-09-09 08:51] LABS: HEMATOCRIT 44 % (35-52); LYMPHOCYTES # (AUTO) 1.5 10^3/uL (1.0-4.0); LYMPHOCYTES % (AUTO) 23 % (12-44); MEAN CORPUSCULAR HEMOGLOBIN 32 pg (25-34); MEAN CORPUSCULAR HGB CONC 33 g/dL (32-36); MEAN PLATELET VOLUME 11.4 fL (9.0-12.2); NEUTROPHILS # (AUTO) 4.8 10^3/uL (1.8-7.8); NEUTROPHILS % (AUTO) 72 % (42-75); PLATELET COUNT 149 10^3/uL (130-400); WHITE BLOOD COUNT 6.6 10^3/uL (4.3-11.0)
[2021-09-09 08:56] LABS: BACTERIA,URINE TRACE /HPF; WBC,URINE 0-2 /HPF
[2021-09-09] MEDS: D5 LR IV SOLUTION 1,000 ML IV SCH ×3 (09:55→23:52)
[2021-09-09] MEDS ORDERED: LACTATED RINGERS 1,000 ML IV ONE (10:00)
[2021-09-09] MEDS ORDERED: CATHETER FLUSH 10 ML SYR IV PRN (10:00)
[2021-09-09] MEDS ORDERED: NALOXONE 0.4 MG/ML 1 ML (NARCAN) VIAL IV PRN ×2 (10:00→19:45)
[2021-09-09] MEDS ORDERED: OXYTOCIN PRE-MIX DRIP 500 ML IV ONE (18:10)
[2021-09-09] MEDS ORDERED: OXYTOCIN PRE-MIX DRIP 500 ML IV SCH ×2 (18:15→19:45)
[2021-09-09] MEDS ORDERED: fentaNYL 2 mcg/ml BUPIVA 0.125 100 ML ONE (19:26)
[2021-09-09] MEDS ORDERED: fentaNYL INJ 100 MCG/2 ML AMP ONE (19:44)
[2021-09-09] MEDS ORDERED: BUPIVACAINE 0.25% 30 ML (SENSORCAINE) VIAL ONE (19:44)
[2021-09-09] MEDS ORDERED: MEASLES,MUMPS,RUBELLA 1 EA INJ SQ ONE (19:45)
[2021-09-09] MEDS ORDERED: WITCH HAZEL(TUCKS) 40 EA JAR TOP PRN (19:45)
[2021-09-09] MEDS ORDERED: DIBUCAINE 1% OINTMENT 30 GM TUBE TOP PRN (19:45)
[2021-09-09] MEDS ORDERED: TETANUS,DIPTH,PERTUSS P/F (BOOSTRIX) 0.5 ML VIAL IM ONE (19:45)
[2021-09-09] MEDS ORDERED: BENZOCAINE/MENTHOL (DERMOPLAST) 56 ML CAN TP PRN (19:45)
--- NOTE | 2021-09-09 19:45 | History & Physical-OB ---
OB - Chief Complaint & HPI Date/Time Date of Admission: Date of Admission: Sep 09, 2021 at 07:55 Date seen by a Provider: Sep 09, 2021 Time Seen by a Provider: 09:00 Chief Complaint/History Expected Date of Delivery: Sep 10, 2021 Gestational Age in Weeks: 39 Gestational Age in Days: 6 Allergies and Home Medications Allergies Coded Allergies: No Known Drug Allergies (Verified , 11/05/08) Patient Home Medication List Doxycycline Hyclate (Doxycycline Hyclate) 100 Mg Tablet, 100 MG PO BID Prescribed by: BRONWYN CONTRERAS on 11/18/16 0817 Hydrocodone/Acetaminophen (Lortab 5-325 mg Tablet) 1 Each Tablet, 1 EACH PO Q4H Prescribed by: SANJEEV MATTHEWS on 11/17/16 0932 Ibuprofen (Ibuprofen) 600 Mg Tablet, 600 MG PO Q6H PRN for PAIN Prescribed by: SANJEEV MATTHEWS on 11/17/16 0932 Methylergonovine Maleate (Methergine) 0.2 Mg Tablet, 0.2 MG PO Q6H Prescribed by: BRONWYN CONTRERAS on 11/18/16 0816 Ondansetron (Ondansetron Odt) 8 Mg Tab.rapdis, 4-8 MG PO Q6H PRN for NAUSEA Prescribed by: KAMILLA GASCA on 11/13/16 1411 OB - History Obstetrical History Hx Termination: No Hx Multiple Gestation: No Hx Stillbirth: No Hx Complication: No Hx Induced Hypertens: No Hx Maternal Gestational Diabet: No Delivery History Hx Dystocia: No Hx Large For Gestational Age I: No Hx Small for Gestational Age I: No Hx Section: No Hx Vaginal Delivery Post C-Sec: No Hx Blood Disorders: No Immunizations Date of Influenza Vaccine: Aug 15, 2012 OB - Admission Exam Physical Exam Vitals: Vital Signs 09/09/21 09/09/21 09/09/21 09:10 18:12 19:00 Temp 37.1 Pulse 87 Resp 18 B/P (MAP) 149/79 (102) Pulse Ox 100 O2 Delivery Room Air Labs Laboratory Tests Test 09/09/21 08:37 Range/Units White Blood Count 6.6 4.3-11.0 10^3/uL Red Blood Count 4.54 3.80-5.11 10^6/uL Hemoglobin 14.4 11.5-16.0 g/dL Hematocrit 44 35-52 % Mean Corpuscular Volume 97 80-99 fL Mean Corpuscular Hemoglobin 32 25-34 pg Mean Corpuscular Hemoglobin Concent 33 32-36 g/dL Red Cell Distribution Width 14.0 10.0-14.5 % Platelet Count 149 130-400 10^3/uL Mean Platelet Volume 11.4 9.0-12.2 fL Immature Granulocyte % (Auto) 0 % Neutrophils (%) (Auto) 72 42-75 % Lymphocytes (%) (Auto) 23 12-44 % Monocytes (%) (Auto) 4 0-12 % Eosinophils (%) (Auto) 1 0-10 % Basophils (%) (Auto) 0 0-10 % Neutrophils # (Auto) 4.8 1.8-7.8 10^3/uL Lymphocytes # (Auto) 1.5 1.0-4.0 10^3/uL Monocytes # (Auto) 0.3 0.0-1.0 10^3/uL Eosinophils # (Auto) 0.0 0.0-0.3 10^3/uL Basophils # (Auto) 0.0 0.0-0.1 10^3/uL Immature Granulocyte # (Auto) 0.0 0.0-0.1 10^3/uL Percent Immature Platelet Fraction 3.4 0.0-7.6 % Urine Color YELLOW Urine Clarity CLEAR Urine pH 6.0 5-9 Urine Specific [place] 1.020 1.016-1.022 Urine Protein NEGATIVE NEGATIVE Urine Glucose (UA) NEGATIVE NEGATIVE Urine Ketones NEGATIVE NEGATIVE Urine Nitrite NEGATIVE NEGATIVE Urine Bilirubin NEGATIVE NEGATIVE Urine Urobilinogen 0.2 < = 1.0 MG/DL Urine Leukocyte Esterase NEGATIVE NEGATIVE Urine RBC (Auto) NEGATIVE NEGATIVE Urine RBC NONE /HPF Urine WBC 0-2 /HPF Urine Squamous Epithelial Cells 2-5 /HPF Urine Crystals NONE /LPF Urine Bacteria TRACE /HPF Urine Casts NONE /LPF Urine Mucus SMALL H /LPF Urine Culture Indicated NO SANJEEV MATTHEWS DO Sep 09, 2021 19:45
--- NOTE | 2021-09-09 19:45 | OB Labor & Delivery Record ---
Vag Delivery Note Vag Delivery Note Date of Delivery: 09/09/21 Preoperative Diagnosis: Dorothy Lyons is a (36 /Para 8 /4136 , Gestational Age 39 6/7 weeks. history of cs x 1 Postoperative Diagnosis: Same Surgeon: SANJEEV MATTHEWS Anesthesia: none (epidural placed but not yet dosed) Delivery Type: Vaginal after section Findings: Viable male , apgars 8/9, weight pending Lacerations: none Intact placenta with 3 vessel cord. Nuchal cord x 1 delivered through. No body cord or shoulder dystocia Estimated Blood Loss: 250 ml Complications: None Condition: Stable Description of Procedure: The patient is a 36 year old female who presented for induction of labor. She was admitted and informed consent was obtained. Her labor course was remarkable for AROM, placement of epidural and then (at a stall at 5 cm for several hours), augmentation with pitocin. She progressed to complete dilatation and began to push. She was then set up for delivery. The 's head was delivered atraumatically in the bed in the OA position. The shoulders and remainder of the 's body were then delivered without difficulty. Upon delivery, the head was held below the level of the perineum and the mouth and nares were bulb suctioned. The cord was doubly clamped and cut and the infant was handed off to the pediatric staff. An intact placenta with 3-vessel cord delivered via Miguelina and there was found to be minimal bleeding.~ Vigorous fundal massage was performed and the fundus was found to be firm. IV oxytocin was given. Examination of the vagina and perineum revealed no laceration. Following the delivery, sponge, instrument and needle counts were correct. Mom and baby were both in stable condition in the labor suite. Vitals - Labs Vital Signs - I&O Vital Signs Date Time Temp Pulse Resp B/P (MAP) Pulse Ox O2 Delivery O2 Flow Rate FiO2 09/09/21 19:00 87 18 149/79 (102) 09/09/21 18:45 87 18 149/79 (102) 09/09/21 18:12 37.1 98 18 133/63 (86) 100 09/09/21 15:00 36.8 84 18 114/61 (78) 100 09/09/21 13:00 37.1 83 18 126/74 (91) 100 09/09/21 12:45 77 18 126/74 (91) 100 09/09/21 10:30 92 18 115/71 (86) 09/09/21 10:25 82 18 117/68 (84) 09/09/21 10:20 82 18 115/58 (77) 100 09/09/21 10:10 78 18 113/65 (81) 100 09/09/21 09:10 37.2 93 16 100 Room Air Labs Laboratory Tests 09/09/21 08:37: White Blood Count 6.6, Red Blood Count 4.54, Hemoglobin 14.4, Hematocrit 44, Mean Corpuscular Volume 97, Mean Corpuscular Hemoglobin 32, Mean Corpuscular Hemoglobin Concent 33, Red Cell Distribution Width 14.0, Platelet Count 149, Mean Platelet Volume 11.4, Immature Granulocyte % (Auto) 0, Neutrophils (%) (Auto) 72, Lymphocytes (%) (Auto) 23, Monocytes (%) (Auto) 4, Eosinophils (%) (Auto) 1, Basophils (%) (Auto) 0, Neutrophils # (Auto) 4.8, Lymphocytes # (Auto) 1.5, Monocytes # (Auto) 0.3, Eosinophils # (Auto) 0.0, Basophils # (Auto) 0.0, Immature Granulocyte # (Auto) 0.0, Percent Immature Platelet Fraction 3.4, Urine Color YELLOW, Urine Clarity CLEAR, Urine pH 6.0, Urine Specific [place] 1.020, Urine Protein NEGATIVE, Urine Glucose (UA) NEGATIVE, Urine Ketones NEGATIVE, Urine Nitrite NEGATIVE, Urine Bilirubin NEGATIVE, Urine Urobilinogen 0.2, Urine Leukocyte Esterase NEGATIVE, Urine RBC (Auto) NEGATIVE, Urine RBC NONE, Urine WBC 0-2, Urine Squamous Epithelial Cells 2-5, Urine Crystals NONE, Urine Bacteria TRACE, Urine Casts NONE, Urine Mucus SMALLH, Urine Culture Indicated NO SANJEEV MATTHEWS DO Sep 09, 2021 19:45
[2021-09-09] MEDS ORDERED: ACETAMINOPHEN 500 MG TAB (TYLENOL) ONE (20:39)
[2021-09-09] MEDS: ACETAMINOPHEN 500 MG TAB (TYLENOL) PO SCH (20:41)
[2021-09-09] MEDS ORDERED: CATHETER FLUSH 10 ML SYR IV SCH (22:00)
[2021-09-09] MEDS: CATHETER FLUSH 10 ML SYR IV SCH ×2 (22:11→22:14)
[2021-09-09] MEDS: DOCUSATE SODIUM 100 MG (COLACE) CAP PO SCH (22:26)
[2021-09-09] MEDS: IBUPROFEN 600 MG (MOTRIN) TAB PO SCH (23:44)
[2021-09-10] MEDS: ACETAMINOPHEN 500 MG TAB (TYLENOL) PO SCH ×2 (05:22→16:23)
[2021-09-10 05:24] VITALS: BP 106/56
[2021-09-10 06:59] LABS: BASOPHILS % (AUTO) 0 % (0-10); EOSINOPHILS % (AUTO) 0 % (0-10); HEMATOCRIT 34 % (35-52); LYMPHOCYTES # (AUTO) 1.5 10^3/uL (1.0-4.0); LYMPHOCYTES % (AUTO) 14 % (12-44); MEAN CORPUSCULAR HEMOGLOBIN 31 pg (25-34); MEAN CORPUSCULAR HGB CONC 32 g/dL (32-36); MEAN CORPUSCULAR VOLUME 98 fL (80-99); MONOCYTES # (AUTO) 0.4 10^3/uL (0.0-1.0); MONOCYTES % (AUTO) 4 % (0-12); NEUTROPHILS # (AUTO) 8.3 10^3/uL (1.8-7.8); NEUTROPHILS % (AUTO) 81 % (42-75); PLATELET COUNT 141 10^3/uL (130-400); WHITE BLOOD COUNT 10.3 10^3/uL (4.3-11.0)
[2021-09-10] MEDS ORDERED: PRENATAL VITAMIN 1 EA TAB PO SCH (07:00)
--- NOTE | 2021-09-10 07:39 | Anesthesia-Regional Post-Op ---
Regional Significant Intra-Op Events Notes Epidural was never dosed, but placed per protocol for . Catheter was removed without complications per OB staff. Patient up walking this am and denies any headache or backache. All questions answered. Post Op Complications Complications None Follow Up Care/Instructions Patient Instructions None needed. Anesthesia/Patient Condition Patient is doing well, no complaints, stable vital signs, no apparent adverse anesthesia problems. No complications reported per nursing. EVY RODRIGUEZ CRNA Sep 10, 2021 07:39
[2021-09-10] MEDS ORDERED: FERROUS SULF 325 MG (IRON) TAB PO SCH (09:00)
[2021-09-10] MEDS: IBUPROFEN 600 MG (MOTRIN) TAB PO SCH (09:22)
[2021-09-10] MEDS: DOCUSATE SODIUM 100 MG (COLACE) CAP PO SCH (09:22)
[2021-09-10 09:27] VITALS: BP 114/67
--- NOTE | 2021-09-10 09:58 | Postpartum Progress Note ---
Note Note Day # 1 Subjective: Patient is without complaints. Ambulating, voiding. Tolerating a regular diet without nausea or vomiting. Normal lochia. Pain is well controlled with oral pain medications. Objective: Physical Exam: General - Alert and oriented, no apparent distress Abdomen - Soft, appropriately tender to palpation, non-distended, fundus firm at umbilicus Extremities - no edema, negative Jessica's bilaterally Assessment: Post- day # 1, status post . Recovering well, hemodynamically stable Acute blood loss anemia Plan: Routine care. Encourage breast feeding. Encourage ambulation. Ferrous sulfate supplementation. Plan for discharge today Vitals - Labs Vital Signs - I&O Vital Signs Date Time Temp Pulse Resp B/P (MAP) Pulse Ox O2 Delivery O2 Flow Rate FiO2 09/10/21 09:27 36.6 105 16 114/67 (83) 97 Room Air 09/10/21 05:24 36.2 82 16 106/56 (73) 99 Room Air 09/09/21 23:49 84 16 114/55 (74) 09/09/21 22:00 36.8 78 18 126/62 (83) 09/09/21 21:00 83 18 137/68 (91) 09/09/21 20:45 76 18 138/64 (88) 09/09/21 20:30 79 18 158/72 (100) 09/09/21 20:15 86 18 141/94 (110) 09/09/21 20:00 85 18 127/76 (93) 09/09/21 19:15 93 20 125/60 (81) 09/09/21 19:00 87 18 149/79 (102) 09/09/21 18:45 87 18 149/79 (102) 09/09/21 18:12 37.1 98 18 133/63 (86) 100 09/09/21 15:00 36.8 84 18 114/61 (78) 100 09/09/21 13:00 37.1 83 18 126/74 (91) 100 09/09/21 12:45 77 18 126/74 (91) 100 09/09/21 10:30 92 18 115/71 (86) 09/09/21 10:25 82 18 117/68 (84) 09/09/21 10:20 82 18 115/58 (77) 100 09/09/21 10:10 78 18 113/65 (76) 100 I & O 09/10/21 07:00 Intake Total 2000 ml Balance 2000 ml Labs Laboratory Tests 09/10/21 06:00: White Blood Count 10.3, Red Blood Count 3.53L, Hemoglobin 11.0#L, Hematocrit 34L , Mean Corpuscular Volume 98, Mean Corpuscular Hemoglobin 31, Mean Corpuscular Hemoglobin Concent 32, Red Cell Distribution Width 13.9, Platelet Count 141, Mean Platelet Volume 10.0, Immature Granulocyte % (Auto) 0, Neutrophils (%) (Auto) 81H, Lymphocytes (%) (Auto) 14, Monocytes (%) (Auto) 4, Eosinophils (%) (Auto) 0, Basophils (%) (Auto) 0, Neutrophils # (Auto) 8.3H, Lymphocytes # (Auto) 1.5, Monocytes # (Auto) 0.4, Eosinophils # (Auto) 0.0, Basophils # (Auto) 0.0, Immature Granulocyte # (Auto) 0.0, Percent Immature Platelet Fraction 2.5 FABIAN HOBSON [employer] Sep 10, 2021 09:58
[2021-09-10] MEDS ORDERED: DOCU100C37 PO (10:04)
[2021-09-10] MEDS ORDERED: OXC5T PO (10:04)
[2021-09-10] MEDS ORDERED: BENZ78AE5 TP (10:04)
[2021-09-10] MEDS ORDERED: IBUP-1773 PO (10:04)
[2021-09-10] MEDS ORDERED: DIBU30OI TOP (10:04)
--- NOTE | 2021-09-10 10:06 | Discharge Inst-Women's Service ---
Discharge Inst-Women's Serv Depart Medication/Instructions New, Converted or Re-Newed RX: Call to Patients Pharmacy Consults/Follow Up Additional Follow Up: Yes Orders/Referrals 6wk PP appt Activity Activity: Activity as Tolerated Driving Instructions: No Driving for 1 Week NO SMOKING: NO SMOKING Nothing Inside Vagina: No Douching, No [place], No Tampons Diet Discharge Diet: No Restrictions Symptoms to Report to : Bleeding Excessive, Pain Increased, Vaginal Bleeding Increase, Questions/Concerns For Any Problems or Questions: Contact Your Physician FABIAN HOBSON APRN Sep 10, 2021 10:06
[2021-09-10] MEDS ORDERED: OXYC1TAB11 PO (11:14)
[2021-09-10 12:43] VITALS: BP 122/61
[2021-09-10 16:25] VITALS: BP 125/56
[2021-09-10 20:40] VITALS: BP 118/54
== END 2021-09-10 21:30 | disposition home or self-care (01) | DRG 806 ==
LOC: LDRP 07:55 → WS 17:56 → LDRP 17:56
PROVIDERS: ADMIT Obstetrics & Gynecology; ATTEND Obstetrics & Gynecology
PROC: 10E0XZZ Delivery of Products of Conception, External Approach (ICD-10-PCS; principal; 2021-09-09)
PROC: 10907ZC Drainage of Amniotic Fluid, Therapeutic from Products of Conception, Via Natural or Artificial Opening (ICD-10-PCS; 2021-09-09)
DX: O69.81X0 Labor and delivery complicated by cord around neck, without compression, not applicable or unspecified (principal); D62 Acute posthemorrhagic anemia; O90.81 Anemia of the puerperium; Z37.0 Single live birth; Z3A.39 39 weeks gestation of pregnancy
CPT/HCPCS: 36415; 81000; 83033; 85025; 86850; 86900; 86901